=== PATIENT | female | born 1975 | race Caucasian/White ===

== ENCOUNTER 2016-10-13 17:03 | Emergency (ER) | payer BC ==
[~2016-10-13] VITALS: Ht 165.1 cm; Wt 61.0 kg
[2016-10-13] MEDS ORDERED: ED- CIPROFLOXACIN 0.3% OPHTHALMIC DROPS (CILOXAN) 2.5 ML BTL OD ONE (17:55)
[2016-10-13 18:13] VITALS: BP 111/65
== END 2016-10-13 18:14 | disposition home or self-care (01) ==
LOC: ED 17:03
DX: S00.412A Abrasion of left ear, initial encounter (principal); W20.8XXA Other cause of strike by thrown, projected or falling object, initial encounter; Y93.E8 Activity, other personal hygiene
CPT/HCPCS: 99282

== ENCOUNTER → 2016-12-13 | Outpatient (REF) | payer BC ==
[2016-12-13 10:19] LABS: BASOPHILS % (AUTO) 2 % (0-2); EOSINOPHILS % (AUTO) 1 % (0-4); LYMPHOCYTES # (AUTO) 1.4 X10^3; MEAN CORPUSCULAR HEMOGLOBIN 28.5 PG (26.0-34.0); MEAN CORPUSCULAR HGB CONC 32.5 g/dL (31.0-37.0); MEAN CORPUSCULAR VOLUME 88 FL (80-100); MEAN PLATELET VOLUME 9.9 FL (6.0-9.5); MONOCYTES # (AUTO) 0.3 X10^3; MONOCYTES % (AUTO) 7 % (3-11); NEUTROPHILS # (AUTO) 2.2 X10^3; NEUTROPHILS % (AUTO) 55 % (51-67); PLATELET COUNT 268 10^3uL (150-450); WHITE BLOOD COUNT 3.94 10^3uL (4.0-11.0)
[2016-12-13 10:57] LABS: ALBUMIN 3.4 g/dL (3.4-5.0); ANION GAP 12.5 MEQ/L (3-15); TOTAL PROTEIN 6.3 g/dL (6.4-8.5)
== END ==
LOC: LAB 10:00
PROVIDERS: ATTEND Internal Medicine Hematology & Oncology
DX: D50.9 Iron deficiency anemia, unspecified (principal)
CPT/HCPCS: 80053; 82728; 82746; 83540; 83550; 85025